=== PATIENT | female | born 1935 | race Caucasian/White ===

== ENCOUNTER → 2016-07-27 | Outpatient (CLI) | payer MEDICARE, BC ==
[~2016-07-27] MED LIST: ANTIVERT PO; ASPIRIN81 M2 PO; CARAFATE PO; CARAFATE1 G PO; DAILY MULTIVITA1 TA1 PO; KLOR-CON PO; LIPITOR20 MG PO; MECLIZINE HCL25 M1 PO; PROTONIX PO; TRIAMTERENE-HCT1 TA6 PO; TRIAMTERENE-HCT1 TA8 PO; TYLENOL PM EX-S1 TA4 PO
--- NOTE | ~2016-07-27 | US37 ---
[facility] A Service of [facility] [place] [facility] RADIOLOGY TEXT RESULTS PATIENT: PATRICIA PAZ LOCATION: [facility] : 34 UNIT #: [id number] AGE: [address]: Harriet Hsieh MD SEX: F ORDER DR: [id number] [facility] [address] [place], [place] [address] [id number] O MR#: [id number] Acc #: [id number] NAME: PATRICIA PAZ. : 1935 SEX: F STUDY DATE/TIME: 07/27/2016 11:46 UNIT: [facility] ROOM: STUDY DESCRIPTION: US Carotid W/Doppler Bilateral Attending Physician: Harriet Hsieh M.D. Referring Physician: Harriet Hsieh M.D. Ordering Physician: Harriet Hsieh M.D. Primary Care Physician: Dana Duvall M.D. MEDICAL IMAGING REPORT This report is preliminary unless electronic signature is present EXAM Carotid duplex scan. DATE OF EXAMINATION 07/27/2016 HISTORY Carotid bruit. EXAM The right common carotid artery has no significant plaque. The right internal and external carotid arteries are patent with minimal plaque. The right internal carotid artery is very tortuous. Peak systolic velocity in the mid right internal carotid artery is 71 cm/sec with an end-diastolic velocity of 17 cm/sec. The ICA:CCA ratio on the right is 1.07. Peak systolic velocity in the right external carotid artery is 84 cm/sec. The right vertebral artery is patent with antegrade flow. The left common carotid artery has a small amount of heterogeneous plaque. There is a small amount of plaque in the proximal left internal and external carotid arteries. Peak systolic velocity in the distal left internal carotid artery is 67 cm/sec with an end-diastolic velocity of 5 cm/sec. The ICA:CCA ratio on the left is 1.81. Peak systolic velocity in the left external carotid artery is 49 cm/sec. The left vertebral artery is patent with antegrade flow. IMPRESSION Minimal plaque and no significant stenosis (less than 50%) in the internal and external carotid arteries bilaterally. Patent vertebral arteries bilaterally with antegrade flow. STS. [facility] A Service of [facility] [place] & [facility] RADIOLOGY TEXT RESULTS PATIENT: PATRICIA PAZ LOCATION: [facility] : 34 UNIT #: [id number] AGE: [address]: Harriet Hsieh MD SEX: F ORDER DR: Dictated by... Bruce Julien M.D. THIS IS AN ELECTRONICALLY VERIFIED REPORT Bruce Julien M.D. at 07/28/2016 7:33 AM SINDI/willy TD: 07/27/2016 17:13 JOB #: [id number] MEDICAL IMAGING REPORT Page 1 of 1 COPY
== END | disposition home or self-care (01) ==
LOC: CNIV 11:20
DX: R09.89 Other specified symptoms and signs involving the circulatory and respiratory systems (principal)
CPT/HCPCS: 93880